=== PATIENT | female | born 1985 | race Caucasian/White ===

== ENCOUNTER 2024-12-31 08:41 | Emergency (ER) | payer OTHER ==
[~2024-12-31] VITALS: Ht 154.9 cm; Wt 65.2 kg
--- NOTE | 2024-12-31 09:01 | Physician Documentation ---
History of Present Illness ~ Stated Complaint: L SHOULDER PAIN Time Seen by MD: 09:00 HPI This 39 yr old female presents to the ER due to concerns for worsening left arm pain x the last four months. Some reduced/painful ROM to the neck worse with turning to the right. No fevers, chills, N/V, and denies IVDU. No injury recalled. Presents here today because she has been seeing her PCP but has been getting help for her issue. Ibuprofen is not alleviating the pain and she is having trouble sleeping at night. Has had neck xrays but no further imaging and has not been to physical therapy. Medication Reconciliation Allergies: Coded Allergies: No Known Allergies (Unverified , 12/31/24) Scheduled Gabapentin (Gabapentin), 1 CAP PO Q8H Naproxen (Naproxen), 1 TAB PO Q12H Review of Systems ROS As stated above in the HPI, otherwise all systems are reviewed and negative. Physical Exam Physical Exam General: Alert, no apparent distress. Neck: Mildly reduced ROM when turning neck fully to right. No midline tenderness, crepitus, or other abnormalities to palpation. Respiratory: Lungs clear, no respiratory distress. Chest: No accessory muscle use. Cardiovascular: Regular rate and rhythm, no murmurs. Gastrointestinal: Soft, nontender, nondistended. Bowels sounds present. Extremities: (-) Tinnel's test. No TTP lateral left elbow or wrist. Full ROM of left arm and shoulder. Neurologic: Oriented x4. Psychiatric: Normal mood and affect. Skin: Normal color, warm and dry. No edema, no ecchymosis. Progress Results/Orders Results/Orders Orders - MARTITA LAYTON SALES REPRESENTATIVE Ct Cervical Spine (12/31/24 09:01) Completed Orders - MARTITA LAYTON SALES REPRESENTATIVE Ct Cervical Spine (12/31/24 09:01) Ketorolac Trometh 30mg/Ml Vial (Toradol (12/31/24 09:25) Medications Received in ER Medications (Trade) Dose Ordered Sig/Malik Route PRN Reason Start Time Stop Time Status Last Admin Dose Admin (Toradol inj. 30mg/ml) 30 mg ONCE ONCE IM 12/31/24 09:25 12/31/24 09:26 DC 12/31/24 10:06 30 MG Vital Signs 12/31/24 12/31/24 12/31/24 12/31/24 08:57 10:06 10:13 10:13 Temp 97.8 97.8 Pulse 57 86 Resp 15 14 16 14 B/P (MAP) 141/90 121/84 (96) Pulse Ox 100 99 O2 Flow Rate 0 12/31/24 10:19 Resp 15 EKG/XRAY/CT/US/VASC/MRI CT : Impression [place] [id number] CAT SCAN Patient: LYNN KWONG Medical Record: [id number] [facility] : 1985, Age: 39 Sex: Female Location: ER Patient Status: [facility] ER Service Date/Time: 12/31/24900 Ordering Physician: MARTITA LAYTON NP Exam: CT CERVICAL SPINE CT CT CERVICAL SPINE INDICATION: parasthesia left hand EXAM DATE: 12/31/2024 09:47 AM COMPARISON: None RADIATION DOSE: CTDIvol: 19 mGy, DLP: 444 mGy*cm PROCEDURE: Utilizing the CT scanner, contiguous axial images were obtained through the cervical spine. Coronal and sagittal reformatted images were then generated. All CT scans at this medical facility are performed using dose modulation techniques as appropriate to a performed exam including the following: Automated exposure control was utilized; adjustment of the MA and/or KV according to patient size; and use of iterative reconstruction technique. FINDINGS: Alignment at the craniocervical junction is maintained. The cortical margins are intact. The vertebral body heights and cervical alignment are normal. The facet joints show normal alignment without fracture. The in tervertebral disc spaces are preserved. The paraspinal soft tissues appear normal. On axial images: There is mild multi level posterior disc bulge. Mild central canal narrowing is seen at C5-C6. No other significant central canal narrowing is visualized. No significant neuroforaminal narrowing is seen. Facet degenerative changes are noted. IMPRESSION: No cervical spine fracture or subluxation. Mild central canal narrowing is seen at C5-C6. No significant neuroforaminal narrowing is seen. Electronically Signed by:SHYAM MELENDEZ MD Date & Time: 12/31/24 1010 Dictated by: SHYAM MELENDEZ MD Dictation date and time: 12/31/24 1010 Primary Care Provider: NO PRIMARY CARE PROVIDER cc: MARTITA LAYTON SALES REPRESENTATIVE ~ Medical Decision Making Additional Comment CT done, showed central canal stenosis at C5-C6. Patient from out of town. Will be provided with copy of CT scan. RX for gabapentin, Naproxen. Instructed to see PCP and request referrals for neurosurgery and PT. Current condition does not warrant admission. No IVDU, fevers, or concerns for abscess. Departure Time of Disposition: 10:23 Disposition: 01 HOME / SELF CARE / HOMELESS Impression: Primary Impression: Cervical stenosis of spine Additional Impression: Radicular pain in left arm Discharge Instructions: Spinal Stenosis Additional Instructions: See the provided copy of your CT scan. Take the prescribed medications for pain. Gabapentin may be slowly titrated up at bedtime from 100 mg to 300 mg for pain. This should help. You may also use 100 mg morning and afternoon if tolerated. This medication can cause drowsiness. Increase dose slowly. Keep taking Naproxen 500 mg twice daily with food or Ibuprofen up to 800 mg three times daily with food for pain. Request referral to physical therapy and neurosurgery. Return if worse. Referrals: NO PRIMARY CARE PROVIDER (PCP) Prescriptions Naproxen (Naproxen) 500 Mg Tablet 1 TAB PO Q12H, #20 TAB Prov: MARTITA LAYTON NP 12/31/24 Gabapentin (Gabapentin) 100 Mg Capsule 1 CAP PO Q8H for 30 Days, #90 CAP 0 Refills Prov: MARTITA LAYTON NP 12/31/24 Education Educated: Patient Educated regarding: diagnosis, treatment, prognosis, need for follow up Signature Scribe Signature: no scribe Attestation: The note accurately reflects work and decisions made by me.Martita Rodriguez NP 12/31/24 09:16 MARTITA LAYTON NP Dec 31, 2024 09:01
[2024-12-31] MEDS: ketorolac trometh 30MG/ML vial 30 MG/ML VIAL IM ONE (10:06)
--- NOTE | 2024-12-31 10:13 | RADIOLOGY REPORT ---
CT CT CERVICAL SPINE INDICATION: parasthesia left hand EXAM DATE: 12/31/2024 09:47 AM COMPARISON: None RADIATION DOSE: CTDIvol: 19 mGy, DLP: 444 mGy*cm PROCEDURE: Utilizing the CT scanner, contiguous axial images were obtained through the cervical spine . Coronal and sagittal reformatted images were then generated. All CT scans at this medical facility are performed using dose modulation techniques as appropriate t o a performed exam including the following: Automated exposure control was utilized; adjustment of th e MA and/or KV according to patient size; and use of iterative reconstruction technique. FINDINGS: Alignment at the craniocervical junction is maintained. The cortical margins are intact. Th e vertebral body heights and cervical alignment are normal. The facet joints show normal alignment wi thout fracture. The intervertebral disc spaces are preserved. The paraspinal soft tissues appear norm al. On axial images: There is mild multi level posterior disc bulge. Mild central canal narrowing is see n at C5-C6. No other significant central canal narrowing is visualized. No significant neuroforaminal narrowing is seen. Facet degenerative changes are noted. IMPRESSION: No cervical spine fracture or subluxation. Mild central canal narrowing is seen at C5-C6. No significant neuroforaminal narrowing is seen.
[2024-12-31] MEDS ORDERED: GABA-530 PO (10:24)
[2024-12-31] MEDS ORDERED: NAPR-56 PO (10:25)
[2024-12-31 10:28] VITALS: BP 121/82; PULSE 86; RESP 15; TEMP 97.8; O2SAT 99
== END 2024-12-31 10:32 | disposition home or self-care (01) ==
LOC: ER 08:41
DX: M48.02 Spinal stenosis, cervical region (principal); M54.12 Radiculopathy, cervical region; Z79.899 Other long term (current) drug therapy
CPT/HCPCS: 72125; 96372; 99285; J1885